=== PATIENT | female | born 1985 | race Caucasian/White ===

== ENCOUNTER → 2022-05-02 | Outpatient (CLI) | payer BC ==
--- NOTE | 2022-05-02 13:05 | Diagnostic Imaging Report ---
INDICATION: survey. TECHNIQUE: Multiple real-time grayscale images were obtained over the gravid uterus. COMPARISON: None FINDINGS: There is a single live fetus in a cephalic presentation. heart rate was recorded at 143 bpm. Placenta is posterior. No previa is detected. Amniotic fluid index is 13.7 cm. Cervical length is 4.1 cm. kidneys, bladder and stomach are unremarkable. brain is unremarkable. There is a four-chamber heart. There is a three-vessel cord with normal insertion. spine is unremarkable. Biometrical measurements are as follows: Biparietal 4.30 cm, age 19 weeks 1 days. Head circumference 16.31 cm, age 19 weeks 1 days. Abdominal circumference 12.84 cm, age 18 weeks 3 days. Femur length 3.12 cm, age 19 weeks 5 days. Sonographic estimate age: 19 weeks 1 days. Sonographic estimated date of delivery: 09/25/2022. Estimated Weight: 269 gm (+/- 40 gm). LMP percentile: 55%. heart rate: 143 beats per minute. number: 1 of 1. IMPRESSION: Single live IUP 19 weeks 1 day gestational age with estimated date of confinement sonographically of 09/25/2022. No complicating features are detected. Dictated by: Dictated on workstation # [id number]
== END ==
LOC: RAD 10:00
PROVIDERS: ATTEND Obstetrics & Gynecology
DX: Z33.1 Pregnant state, incidental (principal); Z3A.19 19 weeks gestation of pregnancy
CPT/HCPCS: 76805

== ENCOUNTER 2022-09-02 03:20 | Inpatient (IN) | payer BC ==
[~2022-09-02] VITALS: Ht 173 cm; Wt 87.8 kg
[2022-09-02] VITALS (41 sets, daily range): BP systolic 101–138; BP diastolic 55–74
[2022-09-02 03:54] LABS: BILIRUBIN,URINE NEGATIVE (NEGATIVE); CLARITY,URINE CLEAR; COLOR,URINE YELLOW; GLUCOSE, URINE (UA) NEGATIVE (NEGATIVE); KETONES,URINE NEGATIVE (NEGATIVE); LEUKOCYTE ESTERASE ,URINE NEGATIVE (NEGATIVE); NITRITE,URINE NEGATIVE (NEGATIVE); PH,URINE 6.5 (5-9); PROTEIN,URINE NEGATIVE (NEGATIVE)
[2022-09-02 04:00] LABS: BACTERIA,URINE TRACE /HPF; SQUAMOUS EPITHELIAL CELL,UR 0-2 /HPF; WBC,URINE 0-2 /HPF
[2022-09-02] MEDS ORDERED: LIDOCAINE/EPI 2% 1:200,00 (XYLOCAINE) 20 ML VIAL INJ PRN (04:15)
[2022-09-02] MEDS ORDERED: D5 LR 1,000 ML IV SOLN 1,000 ML IV SCH (04:15)
[2022-09-02 04:30] LABS: BASOPHILS # (AUTO) 0.1 10^3/uL (0.0-0.1); BASOPHILS % (AUTO) 0 % (0-10); EOSINOPHILS # (AUTO) 0.2 10^3/uL (0.0-0.3); EOSINOPHILS % (AUTO) 1 % (0-10); HEMATOCRIT 34 % (35-52); HEMOGLOBIN 11.1 g/dL (11.5-16.0); LYMPHOCYTES # (AUTO) 1.9 10^3/uL (1.0-4.0); LYMPHOCYTES % (AUTO) 14 % (12-44); MEAN CORPUSCULAR HEMOGLOBIN 28 pg (25-34); MEAN CORPUSCULAR HGB CONC 33 g/dL (32-36); MEAN CORPUSCULAR VOLUME 86 fL (80-99); MEAN PLATELET VOLUME 10.8 fL (9.0-12.2); MONOCYTES # (AUTO) 0.8 10^3/uL (0.0-1.0); MONOCYTES % (AUTO) 6 % (0-12); NEUTROPHILS # (AUTO) 10.4 10^3/uL (1.8-7.8); NEUTROPHILS % (AUTO) 78 % (42-75); PLATELET COUNT 282 10^3/uL (130-400); WHITE BLOOD COUNT 13.4 10^3/uL (4.3-11.0)
[2022-09-02] MEDS ORDERED: D5 LR 1,000 ML IV SOLN 1,000 ML IV ONE (04:35)
[2022-09-02] MEDS ORDERED: fentaNYL 2 mcg/ml BUPIVA 0.125 100 ML ONE (04:39)
[2022-09-02] MEDS ORDERED: LACTATED RINGERS 1,000 ML IV SCH ×2 (05:00→05:45)
[2022-09-02] MEDS ORDERED: diphenhydrAMINE 50 MG/ML INJ (BENADRYL) IV PRN (05:45)
[2022-09-02] MEDS ORDERED: NALOXONE 0.4 MG/ML 1 ML (NARCAN) VIAL IV PRN ×3 (05:45→08:00)
[2022-09-02] MEDS ORDERED: ONDANSETRON 4 MG/2 ML (SDV) Z0FRAN IV PRN (05:45)
[2022-09-02] MEDS ORDERED: fentaNYL 2 mcg/ml BUPIVA 0.125 100 ML EPI SCH (05:45)
[2022-09-02] MEDS ORDERED: METOCLOPRAMIDE INJ 10 MG/2 ML (REGLAN) IV PRN (05:45)
[2022-09-02] MEDS ORDERED: CATHETER FLUSH 10 ML SYR IV SCH ×2 (06:00→14:00)
[2022-09-02] MEDS ORDERED: OXYTOCIN PRE-MIX DRIP 500 ML IV ONE ×2 (07:08→07:45)
--- NOTE | 2022-09-02 07:58 | History & Physical-OB ---
OB - Chief Complaint & HPI Date/Time Date of Admission: Date of Admission: Sep 02, 2022 at 04:14 Date seen by a Provider: Sep 02, 2022 Time Seen by a Provider: 07:15 Chief Complaint/History OB-Reason for Admission/Chief: Onset of Labor Hx : 4 Hx Para: 2 Expected Date of Delivery: Sep 27, 2022 Gestational Age in Weeks: 36 Gestational Age in Days: 3 Admission Nurse Assessment Rev: Yes Other O+ RI HEP B/C neg HIV neg GBS neg Allergies and Home Medications Allergies Coded Allergies: No Known Drug Allergies (Unverified , 09/02/22) Patient Home Medication List Home Medication List Reviewed: Yes OB - History Hx of Present Care: Yes Ultrasounds: Normal mid trimester US Obstetrical Complications: None Medical Complications: None Information Induced Hypertension: No Maternal Gestational Diabetes: No Hemorrhage: No Obstetrical History Hx : 4 Hx Para: 2 Number of Living Children: 2 Hx Total # of Abortions (Spona: 1 Delivery History Hx Dystocia: No Hx Forceps Assisted Delivery: No Hx Vacuum Extraction Assisted: No Hx Placenta Abnormality: No Hx Distress: No Hx Large For Gestational Age I: No Hx Small for Gestational Age I: No Hx Section: No Hx Vaginal Delivery Post C-Sec: No Hx Blood Disorders: No Adverse Rxn to Tranfusion: No Patient Past Medical History none Immunizations Influenza Vaccine Up-to-Date: No; Not Current Hepatitis A: Yes Hepatitis B: Yes OB - Admission Exam Physical Exam Vitals: Vital Signs 09/02/22 09/02/22 09/02/22 09/02/22 03:33 05:54 06:24 06:56 Temp 36.8 Pulse 84 Resp 18 B/P (MAP) 129/71 (90) Pulse Ox 96 O2 Delivery Room Air HEENT: NCAT Heart: Rhythm Normal Lungs: Clear Abdomen: Gravid Extremities: Normal Reflexes: Normal Cervical Dilatation: 5cm Heart Rate: 140's Accelerations: Accelerations Present Decelerations: No Decelerations Short Term Variability: Present Intensity: Moderate Labs Laboratory Tests Test 09/02/22 03:40 09/02/22 04:15 Range/Units Urine Color YELLOW Urine Clarity CLEAR Urine pH 6.5 5-9 Urine Specific [place] 1.020 1.016-1.022 Urine Protein NEGATIVE NEGATIVE Urine Glucose (UA) NEGATIVE NEGATIVE Urine Ketones NEGATIVE NEGATIVE Urine Nitrite NEGATIVE NEGATIVE Urine Bilirubin NEGATIVE NEGATIVE Urine Urobilinogen 1.0 < = 1.0 MG/DL Urine Leukocyte Esterase NEGATIVE NEGATIVE Urine RBC (Auto) NEGATIVE NEGATIVE Urine RBC NONE /HPF Urine WBC 0-2 /HPF Urine Squamous Epithelial Cells 0-2 /HPF Urine Crystals NONE /LPF Urine Bacteria TRACE /HPF Urine Casts NONE /LPF Urine Mucus SMALL H /LPF Urine Culture Indicated NO White Blood Count 13.4 H 4.3-11.0 10^3/uL Red Blood Count 3.92 3.80-5.11 10^6/uL Hemoglobin 11.1 L 11.5-16.0 g/dL Hematocrit 34 L 35-52 % Mean Corpuscular Volume 86 80-99 fL Mean Corpuscular Hemoglobin 28 25-34 pg Mean Corpuscular Hemoglobin Concent 33 32-36 g/dL Red Cell Distribution Width 16.0 H 10.0-14.5 % Platelet Count 282 130-400 10^3/uL Mean Platelet Volume 10.8 9.0-12.2 fL Immature Granulocyte % (Auto) 0 % Neutrophils (%) (Auto) 78 H 42-75 % Lymphocytes (%) (Auto) 14 12-44 % Monocytes (%) (Auto) 6 0-12 % Eosinophils (%) (Auto) 1 0-10 % Basophils (%) (Auto) 0 0-10 % Neutrophils # (Auto) 10.4 H 1.8-7.8 10^3/uL Lymphocytes # (Auto) 1.9 1.0-4.0 10^3/uL Monocytes # (Auto) 0.8 0.0-1.0 10^3/uL Eosinophils # (Auto) 0.2 0.0-0.3 10^3/uL Basophils # (Auto) 0.1 0.0-0.1 10^3/uL Immature Granulocyte # (Auto) 0.1 0.0-0.1 10^3/uL Syphilis Total Antibody Negative Negative OB - Assessment/Plan/Diagnosis Assessment Assessment: active labor Admission Dx IUP @ 36w3d Active labor Admission Status: Inpatient Order (span 2 midnights) Reason for Inpatient Admission: IUP@ 36w3d Active labor Plan Plan: Expectant Management NELDA FERRER DO Sep 02, 2022 07:58
[2022-09-02] MEDS ORDERED: TETANUS,DIPTH,PERTUSS P/F (BOOSTRIX) 0.5 ML VIAL IM ONE (08:00)
[2022-09-02] MEDS ORDERED: OXYTOCIN PRE-MIX DRIP 500 ML IV SCH (08:00)
[2022-09-02] MEDS ORDERED: DIBUCAINE 1% OINTMENT 28 GM TUBE TOP PRN (08:00)
[2022-09-02] MEDS ORDERED: MEASLES,MUMPS,RUBELLA 1 EA INJ SQ ONE (08:00)
[2022-09-02] MEDS ORDERED: BENZOCAINE/MENTHOL (DERMOPLAST) 56 ML CAN TP PRN (08:00)
[2022-09-02] MEDS ORDERED: WITCH HAZEL(TUCKS) 40 EA JAR TOP PRN (08:00)
--- NOTE | 2022-09-02 08:01 | OB Labor & Delivery Record ---
Vag Delivery Note Vag Delivery Note Date of Delivery: 09/02/22 Preoperative Diagnosis: Darlin Ellington is a (36 /Para / , Gestational Age (wks)36w3d with c/o CTXs Postoperative Diagnosis: Same Surgeon: NELDA FERRER Preflight Mechanic: [] Anesthesia: Epidural Delivery Type: Spontaneous vaginal delivery Findings: [] Liveborn male , apgars 9/9, weight Pending Lacerations: None Intact placenta with 3 vessel cord. No nuchal cord, body cord or shoulder dystocia Estimated Blood Loss: 100 ml Complications: None Condition: Stable Description of Procedure: The patient is a 37 year old female who presentedAt 36 weeks 3 days with complaint of contractions. She was admitted and informed consent was obtained. Her labor course was Uneventful. She progressed to complete dilatation and began to push. Patient was complete and pushed for approximately 10 minutes delivered the head in an JOSELINE position. The anterior shoulder (left) delivered followed by t he posterior shoulder followed by the rest the . The infant was placed in the maternal abdomen and after 60 seconds the cord was clamped and then cut. The placenta delivered spontaneously intact with three-vessel cord. Cervix, vagina, periurethral and perineal areas were all inspected. There were no lacerations. Quantitative blood loss was 100 cc. All sponge, instrument and needle counts were correct x2. The mother and tolerated the procedure well and recovering in the room in stable condition. Vitals - Labs Vital Signs - I&O Vital Signs Date Time Temp Pulse Resp B/P (MAP) Pulse Ox O2 Delivery O2 Flow Rate FiO2 09/02/22 06:56 84 129/71 (90) Room Air 09/02/22 06:40 94 122/71 (88) Room Air 09/02/22 06:24 79 101/59 (73) 96 Room Air 09/02/22 06:22 84 118/56 (76) 95 Room Air 09/02/22 06:19 83 109/61 (77) 96 Room Air 09/02/22 06:16 77 110/58 (75) Room Air 09/02/22 06:13 77 109/58 (75) 96 Room Air 09/02/22 06:10 76 107/56 (73) 94 Room Air 09/02/22 06:07 89 107/56 (73) 96 Room Air 09/02/22 06:03 91 109/61 (77) 96 Room Air 09/02/22 06:00 86 117/60 (79) Room Air 09/02/22 05:58 75 106/55 (72) 94 Room Air 09/02/22 05:54 74 18 111/59 (76) 94 Room Air 09/02/22 05:52 77 111/60 (77) 94 Room Air 09/02/22 05:49 90 102/55 (71) 95 Room Air 09/02/22 05:46 79 113/62 (79) 94 Room Air 09/02/22 05:43 81 115/60 (78) 95 Room Air 09/02/22 05:40 74 115/60 (78) 09/02/22 05:37 86 124/68 (86) 95 Room Air 09/02/22 05:34 75 117/63 (81) 96 Room Air 09/02/22 05:30 83 118/63 (81) 09/02/22 05:26 81 128/59 (82) 96 Room Air 09/02/22 05:21 79 125/63 (83) 97 Room Air 09/02/22 05:18 74 130/64 (86) 97 Room Air 09/02/22 05:15 90 130/66 (87) 97 Room Air 09/02/22 05:12 87 20 138/73 (94) 98 Room Air 09/02/22 03:33 36.8 85 20 97 Room Air I & O 09/02/22 07:00 Intake Total 1000 ml Balance 1000 ml Labs Laboratory Tests 09/02/22 03:40: Urine Color YELLOW, Urine Clarity CLEAR, Urine pH 6.5, Urine Specific [place] 1.020, Urine Protein NEGATIVE, Urine Glucose (UA) NEGATIVE, Urine Ketones NEGATIVE, Urine Nitrite NEGATIVE, Urine Bilirubin NEGATIVE, Urine Urobilinogen 1.0, Urine Leukocyte Esterase NEGATIVE, Urine RBC (Auto) NEGATIVE, Urine RBC NONE, Urine WBC 0-2, Urine Squamous Epithelial Cells 0-2, Urine Crystals NONE, Urine Bacteria TRACE, Urine Casts NONE, Urine Mucus SMALLH, Urine Culture Indicated NO 09/02/22 04:15: White Blood Count 13.4H, Red Blood Count 3.92, Hemoglobin 11.1L, Hematocrit 34L, Mean Corpuscular Volume 86, Mean Corpuscular Hemoglobin 28, Mean Corpuscular Hemoglobin Concent 33, Red Cell Distribution Width 16.0H, Platelet Count 282, Me an Platelet Volume 10.8, Immature Granulocyte % (Auto) 0, Neutrophils (%) (Auto) 78H, Lymphocytes (%) (Auto) 14, Monocytes (%) (Auto) 6, Eosinophils (%) (Auto) 1, Basophils (%) (Auto) 0, Neutrophils # (Auto) 10.4H, Lymphocytes # (Auto) 1.9, Monocytes # (Auto) 0.8, Eosinophils # (Auto) 0.2, Basophils # (Auto) 0.1, Immature Granulocyte # (Auto) 0.1, Syphilis Total Antibody Negative NELDA FERRER DO Sep 02, 2022 08:01
[2022-09-02] MEDS: FERROUS SULF 325 MG (IRON) TAB PO SCH (08:59)
[2022-09-02] MEDS: PRENATAL VITAMIN 1 EA TAB PO SCH (08:59)
[2022-09-02] MEDS ORDERED: DOCUSATE CALCIUM 240 MG (SURFAK) CAP PO SCH (09:00)
[2022-09-02] MEDS: IBUPROFEN 800 MG (MOTRIN) TAB PO PRN ×2 (12:11→20:28)
[2022-09-02] MEDS: ACETAMINOPHEN 500 MG TABLET PO PRN ×2 (12:11→18:05)
[2022-09-02] MEDS: DOCUSATE SODIUM 100 MG (COLACE) CAP PO SCH (20:28)
[2022-09-03 00:07] VITALS: BP 123/60
[2022-09-03] MEDS: ACETAMINOPHEN 500 MG TABLET PO PRN ×2 (00:08→08:51)
[2022-09-03 04:32] VITALS: BP 125/81
[2022-09-03] MEDS: IBUPROFEN 800 MG (MOTRIN) TAB PO PRN ×3 (04:33→21:06)
[2022-09-03 06:34] LABS: BASOPHILS # (AUTO) 0.1 10^3/uL (0.0-0.1); BASOPHILS % (AUTO) 1 % (0-10); EOSINOPHILS # (AUTO) 0.2 10^3/uL (0.0-0.3); EOSINOPHILS % (AUTO) 2 % (0-10); HEMATOCRIT 30 % (35-52); HEMOGLOBIN 9.9 g/dL (11.5-16.0); LYMPHOCYTES # (AUTO) 2.5 10^3/uL (1.0-4.0); LYMPHOCYTES % (AUTO) 26 % (12-44); MEAN CORPUSCULAR HEMOGLOBIN 29 pg (25-34); MEAN CORPUSCULAR HGB CONC 33 g/dL (32-36); MEAN CORPUSCULAR VOLUME 88 fL (80-99); MEAN PLATELET VOLUME 11.3 fL (9.0-12.2); MONOCYTES # (AUTO) 0.7 10^3/uL (0.0-1.0); MONOCYTES % (AUTO) 7 % (0-12); NEUTROPHILS # (AUTO) 6.2 10^3/uL (1.8-7.8); NEUTROPHILS % (AUTO) 64 % (42-75); PLATELET COUNT 243 10^3/uL (130-400); WHITE BLOOD COUNT 9.7 10^3/uL (4.3-11.0)
[2022-09-03] MEDS: FERROUS SULF 325 MG (IRON) TAB PO SCH (07:00)
[2022-09-03 08:45] VITALS: BP 110/56
--- NOTE | 2022-09-03 08:49 | Postpartum Progress Note ---
Note Note Day #1 Subjective: Patient is without complaints. Ambulating, voiding. Tolerating a regular diet without nausea or vomiting. Normal lochia. Pain is well controlled with oral pain medications. Breast-feedingPatient having some difficulty we will work with the nursing staff.. Objective: Vital signs stable afebrile Physical Exam: General - Alert and oriented, no apparent distress Breast symmetrical no erythema or edema or engorgement Abdomen - Soft, appropriately tender to palpation, non-distended, fundus firm at umbilicus Lochia minimal Extremities - no edema, negative Nancy's bilaterally Assessment: [] post- day # 1 status post spontaneous vaginal delivery. Recovering well, hemodynamically stable Plan: Routine care. Encourage breast feeding. Encourage ambulation. Ferrous sulfate supplementation. Plan for discharge [] Vitals - Labs Vital Signs - I&O Vital Signs Date Time Temp Pulse Resp B/P (MAP) Pulse Ox O2 Delivery O2 Flow Rate FiO2 09/03/22 04:32 37.1 53 18 125/81 (96) 96 Room Air 09/03/22 00:07 36.7 74 20 123/60 (81) 97 Room Air 09/02/22 20:23 36.5 73 18 116/56 (76) 98 Room Air 09/02/22 18:06 83 18 120/59 (79) 97 Room Air 09/02/22 14:00 37.8 64 18 133/73 (93) 100 Room Air 09/02/22 10:00 86 16 115/58 (77) Room Air 09/02/22 09:45 83 18 123/66 (85) Room Air 09/02/22 09:30 80 18 119/62 (81) Room Air 09/02/22 09:15 66 16 121/67 (85) Room Air 09/02/22 09:00 83 16 116/58 (77) Room Air I & O 09/03/22 07:00 Intake Total 2000 ml Balance 2000 ml Labs Laboratory Tests 09/03/22 05:50: White Blood Count 9.7, Red Blood Count 3.41L, Hemoglobin 9.9L, Hematocrit 30L, Mean Corpuscular Volume 88, Mean Corpuscular Hemoglobin 29, Mean Corpuscular Hemoglobin Concent 33, Red Cell Distribution Width 16.0H, Platelet Count 243, Mean Platelet Volume 11.3, Immature Granulocyte % (Auto) 1, Neutrophils (%) (Auto) 64, Lymphocytes (%) (Auto) 26, Monocytes (%) (Auto) 7, Eosinophils (%) (Auto) 2, Basophils (%) (Auto) 1, Neutrophils # (Auto) 6.2, Lymphocytes # (Auto) 2.5, Monocytes # (Auto) 0.7, Eosinophils # (Auto) 0.2, Basophils # (Auto) 0.1, Immature Granulocyte # (Auto) 0.1 NELDA FERRER DO Sep 03, 2022 08:49
[2022-09-03] MEDS ORDERED: FERR325T24 PO (08:50)
[2022-09-03] MEDS ORDERED: PNV1TABL67 PO (08:50)
[2022-09-03] MEDS ORDERED: IBUP-1780 PO (08:50)
[2022-09-03] MEDS: PRENATAL VITAMIN 1 EA TAB PO SCH (08:51)
[2022-09-03] MEDS: DOCUSATE SODIUM 100 MG (COLACE) CAP PO SCH ×2 (08:52→21:06)
[2022-09-03 12:58] VITALS: BP 118/69
--- NOTE | 2022-09-03 14:07 | Anesthesia-Regional Post-Op ---
Regional Patient Condition Mental Status: Alert, Oriented x3 Circulation: Same as Pre-Op Headache: Absent Sensation: Full Recovery Motor Block: Absent Post Op Complications Complications None Follow Up Care/Instructions Patient Instructions None needed. Anesthesia/Patient Condition Patient is doing well, no complaints, stable vital signs, no apparent adverse anesthesia problems. No complications reported per nursing. LUCIAN NICHOLAS CRNA Sep 03, 2022 14:07
[2022-09-03 17:22] VITALS: BP 121/59
[2022-09-04 00:36] VITALS: BP 129/70
[2022-09-04 05:25] VITALS: BP 100/58
[2022-09-04] MEDS: IBUPROFEN 800 MG (MOTRIN) TAB PO PRN (05:27)
[2022-09-04 08:00] VITALS: BP 118/78
--- NOTE | 2022-09-04 08:24 | Postpartum Progress Note ---
Note Note Day # 2 Subjective: Patient is without complaints. Ambulating, voiding. Tolerating a regular diet without nausea or vomiting. Normal lochia. Pain is well controlled with oral pain medications.Breast-feeding. Considering Depo-Provera for BC Objective: Vital signs stable afebrile Physical Exam: General - Alert and oriented, no apparent distress Breast symmetrical no erythema or edema or engorgement Abdomen - Soft, appropriately tender to palpation, non-distended, fundus firm at umbilicus Lochia minimal Extremities - no edema, negative Nancy's bilaterally Assessment: [] post- day # 2status post Spontaneous vaginal delivery Recovering well, hemodynamically stable Plan: Routine care. Encourage breast feeding. Encourage ambulation. Ferrous sulfate supplementation. Plan for discharge Today Vitals - Labs Vital Signs - I&O Vital Signs Date Time Temp Pulse Resp B/P (MAP) Pulse Ox O2 Delivery O2 Flow Rate FiO2 09/04/22 05:25 36.4 66 18 100/58 (72) 97 Room Air 09/04/22 00:36 36.4 63 18 129/70 (89) 96 Room Air 09/03/22 17:22 36.7 55 18 121/59 (79) 98 Room Air 09/03/22 12:58 36.7 60 18 118/69 (85) 98 Room Air 09/03/22 08:45 36.6 69 18 110/56 (74) 98 Room Air NELDA FERRER DO Sep 04, 2022 08:24
[2022-09-04] MEDS: DOCUSATE SODIUM 100 MG (COLACE) CAP PO SCH (09:24)
[2022-09-04] MEDS: PRENATAL VITAMIN 1 EA TAB PO SCH (09:42)
[2022-09-04] MEDS: FERROUS SULF 325 MG (IRON) TAB PO SCH (09:42)
== END 2022-09-04 10:00 | disposition home or self-care (01) | DRG 807 ==
LOC: WSo 03:20 → LDRP 03:21 → WSo 04:13 → LDRP 04:14
PROVIDERS: ADMIT Obstetrics & Gynecology; ATTEND Obstetrics & Gynecology
PROC: 10E0XZZ Delivery of Products of Conception, External Approach (ICD-10-PCS; principal; 2022-09-02)
DX: O60.14X0 Preterm labor third trimester with preterm delivery third trimester, not applicable or unspecified (principal); Z37.0 Single live birth; Z3A.36 36 weeks gestation of pregnancy
CPT/HCPCS: 36415; 81000; 85025; 86780; 86850; 86900; 86901; 99212